=== PATIENT | female | born 1985 | race Asian ===

== ENCOUNTER 2018-05-18 11:11 | Inpatient (IN) | payer OTHER ==
[2018-05-18] MEDS ORDERED: OBEPIDURAL* 0 ML EPIDURAL ONE (11:56)
[2018-05-18] MEDS ORDERED: fentaNYL* 50 MCG/ML 2 ML VIAL (100 MCG VIAL) ONE (12:03)
--- NOTE | 2018-05-18 12:11 | HP ---
General Information - General Information Maternal Age: 29 Grav: 1 Para: 0 SAB: 0 IEA: 0 Estimated Due Date: 05/26/15 Determined By: Early Ultrasound Gestational Age in Weeks and Days: 39 Weeks and 2 Days Maternal Blood Type and Rh: A Positive - Results this Serology/RPR Result: Non-Reactive Rubella Result: Immune HBsAg Result: Negative HIV Result: Negative GBS Culture Result: Positive Past Medical History Delivery History: Hx Uncomplicated Vaginal Delivery Pertinent Past Medical History: Non-Contributory Past Medical History Comment: Tuberculosis age 17 Pertinent Past Surgical History: None Pertinent Family History: Non-Contributory - Antepartal Records Antepartal Records: Reviewed, Complicated by: - Gestational diabetes, diet controlled Review of Systems Constitutional: Uncomfortable CV Complaint: No Respiratory: Shortness of Breath: No Genitourinary: No Leaking Fluid Musculoskeletal: Contractions Neurological: No Headache Movement: Normal - Comments Nausea Exam Allergies/Adverse Reactions: Allergies No Known Allergies Allergy (Verified 07/23/16 13:42) - Measurements Pre- Weight: 113 lb - Exam Breast: - - soft, no masses Extremities: Edema Heart: Normal Rhythm/Heart Sounds HEENT: No Significant Findings Lungs: Clear Bilaterally Reflexes: DTR 2+ Thyroid: No Thyromegaly - Ultrasound/Biophysical Profile Ultrasound Status: Not Done Targeted Exam Findings Cervical Exam: 7cm Effacement: 100% Station: -1 Presenting Part: Vertex Membrane Status: Bulging EFM Findings - External Monitor Findings Baseline Heart Rate: 150 External Monitor Findings: Accelerations Present, Variability Moderate External Monitor Findings Comment: category 1 Contractions: Regular, Strong, 45-90 Seconds Contraction Frequency: every 3 min Assessment/Plan - Obstetrical Risk Factors Obstetrical Risk Factors: Gestational Diabetes - Plan Plan: Active Labor Plan Comment: pt requesting epidural. Was 7cm on admission, now 9 cm, will get intrathecal instead, anticipate vaginal delivery - Date/Time of Admission Date of Admission: 05/18/18 Time of Admission: 11:45
[2018-05-18 12:13] LABS: ABS Basophils 0 10^3/ul (0-0.2); ABS Eosinophils 0 10^3/ul (0-0.6); ABS Lymphocytes 1.7 10^3/ul (1.0-4.8); ABS Monocytes 0.6 10^3/ul (0-0.8); ABS Neutrophils 6.6 10^3/ul (1.5-7.7); ABS Nucleated RBC 0 10^3/ul; Eosinophil % 0.3 % (0-6); Hematocrit 42 % (35-47); Lymphocyte % 19.4 % (25-47); Mean Corpuscular HGB Conc 36 g/dl (31-36); Mean Corpuscular Hemoglobin 34 pg (27-31); Mean Corpuscular Volume 94 fL (80-97); Mean Platelet Volume 10.3 um3 (7.4-10.4); Nucleated Red Blood Cells % 0.1; Platelet Count 139 10^3/ul (150-450); Red Blood Count 4.47 10^6/ul (4.00-5.40); Red Cell Distribution Width 13 % (10.5-15)
[2018-05-18] MEDS ORDERED: Famotidine TAB* 20 MG PO PRN (12:18)
[2018-05-18] MEDS ORDERED: Sodium Citrate/Citric Acid* 15 ML UDC PO PRN (12:18)
[2018-05-18] MEDS ORDERED: EPHEDrine (Pressors)* 50 MG/ML VIAL IV PUSH PRN (12:18)
[2018-05-18] MEDS ORDERED: Phenylephrine IV* 40 MCG/ML 10 ML SYRINGE IV PUSH PRN (12:18)
[2018-05-18] MEDS ORDERED: OBEPIDURAL* 250 ML EPIDURAL SCH (13:00)
[2018-05-18] MEDS ORDERED: Oxytocin in LR* 20 UNITS/1,000 ML BAG IVPB ONE (13:22)
[2018-05-18] MEDS ORDERED: Witch Hazel PAD* JAR TOPICAL PRN (14:12)
[2018-05-18] MEDS ORDERED: Ibuprofen TAB* 600 MG PO PRN (14:12)
[2018-05-18] MEDS ORDERED: Glycerin ADULT SUPP PR PRN (14:12)
[2018-05-18] MEDS ORDERED: Acetaminophen TAB* 325 MG PO PRN (14:12)
[2018-05-18] MEDS ORDERED: Dibucaine 1% 28.35 GM TUBE PR PRN (14:12)
--- NOTE | 2018-05-18 14:20 | PROCNOTE ---
[facility] OB: Delivery Note - Delivery A Date of : 05/18/18 Time of : 13:13 Ocate Sex: Male Score 1 Minute: 8 Score 5 Minutes: 9 Gestational Age in Weeks and Days at Delivery: 38 Weeks and 0 Days Delivery Method: Spontaneous Vaginal Labor: Spontaneous Did Patient attempt ?: N/A, No Previous Amniotic Fluid: Clear Estimated Blood Loss: 200 Anesthesia/Analgesia: ITF/Spinal for Labor Anesthesia Comment: Dr. Madsen Delivered By: Ina Jenkins - Nursery Level of Nursery: Regular/Bedside - Perineum Perineal Injury: Perineal Laceration, 2nd Degree Perineal Injury Comment: repaired with 3-0 and 4-0 ccg under 1% lidocaine local Perineal Repair: By Delivering Practioner - Events Delivery Events of Note: Pitocin Only After Delivery - Additional Delivery Notes Additional Delivery Notes: SVB L[facility], OA over 2nd deg perineal laceration. Infant to maternal abd, pink with stimulation. Terminal mec. Placenta Miguel Ángel. FF with massage, IV with pitocin running. EBL 200cc. Straight cathed after for approx 150 cc urine. Mother and baby in good condition
[2018-05-18] MEDS ORDERED: Oxytocin in LR* 20 UNITS/1,000 ML BAG IVPB SCH (15:00)
[2018-05-18] MEDS: Docusate CAP* 100 MG PO SCH (20:28)
[2018-05-19 06:15] LABS: Hematocrit 37 % (35-47); Hemoglobin 12.3 g/dl (12.0-16.0); Mean Corpuscular HGB Conc 34 g/dl (31-36); Mean Corpuscular Hemoglobin 32 pg (27-31); Mean Corpuscular Volume 96 fL (80-97); Mean Platelet Volume 10.1 um3 (7.4-10.4); Platelet Count 118 10^3/ul (150-450); Red Blood Count 3.81 10^6/ul (4.00-5.40); Red Cell Distribution Width 13 % (10.5-15); White Blood Count 12.1 10^3/ul (3.5-10.8)
[2018-05-19] MEDS: Docusate CAP* 100 MG PO SCH ×3 (08:53→19:50)
[2018-05-19] MEDS ORDERED: Ferrous Gluconate TAB* 324 MG TAB PO SCH (09:00)
[2018-05-20 07:33] VITALS: BP 101/61
[2018-05-20] MEDS: Docusate CAP* 100 MG PO SCH (10:57)
== END 2018-05-20 12:20 | disposition home or self-care (01) | DRG 775 ==
LOC: MCHOBOUT 11:11 → MCHOB 11:36
PROVIDERS: ADMIT Midwife; ATTEND Midwife
PROC: 10E0XZZ Delivery of Products of Conception, External Approach (ICD-10-PCS; principal; 2018-05-18)
PROC: 0KQM0ZZ Repair Perineum Muscle, Open Approach (ICD-10-PCS; 2018-05-18)
PROC: 10907ZC Drainage of Amniotic Fluid, Therapeutic from Products of Conception, Via Natural or Artificial Opening (ICD-10-PCS; 2018-05-18)
PROC: 4A1HXCZ Monitoring of Products of Conception, Cardiac Rate, External Approach (ICD-10-PCS; 2018-05-18)
DX: O24.420 Gestational diabetes mellitus in childbirth, diet controlled (principal); O99.824 Streptococcus B carrier state complicating childbirth; Z86.11 Personal history of tuberculosis; Z3A.38 38 weeks gestation of pregnancy; O70.1 Second degree perineal laceration during delivery; O77.0 Labor and delivery complicated by meconium in amniotic fluid; Z37.0 Single live birth
CPT/HCPCS: 36415; 85025; 85027; 86850; 86900; 86901; A9270-GY; J3010

== ENCOUNTER 2019-08-23 16:50 | Emergency (ER) | payer OTHER ==
--- OUTSIDE RECORDS SUMMARY | 2019-08-23 16:59 | XMS REPORT | Continuity of Care Document ---
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 Problems Active Problems Provider Date Multigravida Andres Moran CNM Onset: 11/18/2017 Gestational diabetes mellitus Andres Moran CNM Onset: 04/20/2018 Social History Type Date Description Comments Sex Unknown Tobacco Use Start: Unknown Never Smoked Cigarettes ETOH Use Denies alcohol use Tobacco Use Start: Unknown Patient has never smoked Recreational Drug Use Denies Drug Use Smoking Status Reviewed: 07/18/19 Patient has never smoked Exercise Type/Frequency Does not exercise Allergies, Adverse Reactions, Alerts Description No Known Drug Allergies Medications Active Medications SIG Qnty Indications Ordering Provider Date Cyred Eq Take one tablet 84tabs Robert Colmenares JR, 0.15-30mg-mcg daily DO Tablets Medications Administered in Office Medication SIG Qnty Indications Ordering Provider Date PT SCRN Tbco Id as Non User Rosemary Duarte CNM 01/04/2019 Injection Immunizations CPT Code Status Date Vaccine Lot # [id number] Given 03/10/2018 Tetnus, Diptheria Toxoids And Acellular Pertussis, [id number] PT > 7Yrs Old [id number] Given 03/12/2015 Tetnus, Diptheria Toxoids And Acellular Pertussis, [id number] PT > 7Yrs Old Vital Signs Date Vital Result Comment 07/18/2019 10:03am BP Systolic 112 mmHg BP Diastolic 80 mmHg Height 60.5 inches 5'0.50" Weight 116.00 lb BMI (Body Mass Index) 22.3 kg/m2 Last Menstrual Period [id number] 2 Parity 2 01/04/2019 12:41pm BP Systolic 102 mmHg BP Diastolic 64 mmHg Height 60.5 inches 5'0.50" Weight 126.00 lb BMI (Body Mass Index) 24.2 kg/m2 Last Menstrual Period [id number] 2 Parity 2 Results Description No Information Available Procedures Description No Information Available Medical Devices Description No Information Available Encounters Type Date Location Provider Dx Diagnosis Office Visit 07/18/2019 [facility] Robert Colmenares JR, Z30.8 Encounter for other 10:00a DO contraceptive management Assessments Date Code Description Provider 07/18/2019 Z30.8 Encounter for other contraceptive management Robert Colmenares JR, DO Plan of Treatment 07/18/2019 - Robert Colmenares JR, DOZ30.8 Encounter for other contraceptive managementComments:Refill given for OCP'sNo Hx of clotting d/o, No hx of DVT, No hx of migraine with Aura, Non-smokerDiscussed different IUD's and options for contraception.Is interested in paraguard IUD, informational pamphlet given, pt will call if she would like to schedule IUD placement. Functional Status Description No Information Available Mental Status Description No Information Available Referrals Description No Information Available
--- OUTSIDE RECORDS SUMMARY | 2019-08-23 16:59 | XMS REPORT | Continuity of Care Document ---
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 Problems Active Problems Provider Date Multigravida Andres Moran CNM Onset: 11/18/2017 Gestational diabetes mellitus Andres Moran CNM Onset: 04/20/2018 Social History Type Date Description Comments Sex Unknown Tobacco Use Start: Unknown Never Smoked Cigarettes ETOH Use Denies alcohol use Tobacco Use Start: Unknown Patient has never smoked Recreational Drug Use Denies Drug Use Smoking Status Reviewed: 07/23/19 Patient has never smoked Exercise Type/Frequency Does not exercise Allergies, Adverse Reactions, Alerts Description No Known Drug Allergies Medications Active Medications SIG Qnty Indications Ordering Provider Date Nitrofurantoin Monohyd take one tab 14caps Rita Bright MD 07/23/2019 Macro by mouth twice 100mg Capsules a day for 7 days Phenazopyridine HCL take one tab 6tabs Rita Bright MD 07/23/2019 100mg by mouth three Tablets times a day after meals for up to two days History Medications No Active Medications Unknown 07/23/2019 - 07/23/2019 Medications Administered in Office Medication SIG Qnty Indications Ordering Provider Date PT SCRN Tbco Id as Non User Rosemary Duarte CNM 01/04/2019 Injection Immunizations CPT Code Status Date Vaccine Lot # [id number] Given 03/10/2018 Tetnus, Diptheria Toxoids And Acellular Pertussis, [id number] PT > 7Yrs Old [id number] Given 03/12/2015 Tetnus, Diptheria Toxoids And Acellular Pertussis, [id number] PT > 7Yrs Old Vital Signs Date Vital Result Comment 07/23/2019 2:22pm BP Systolic 100 mmHg BP Diastolic 65 mmHg Height 60.5 inches 5'0.50" Weight 116.00 lb BMI (Body Mass Index) 22.3 kg/m2 Last Menstrual Period [id number] 2 Parity 2 07/18/2019 10:03am BP Systolic 112 mmHg BP Diastolic 80 mmHg Height 60.5 inches 5'0.50" Weight 116.00 lb BMI (Body Mass Index) 22.3 kg/m2 Last Menstrual Period [id number] 2 Parity 2 Results Description No Information Available Procedures Description No Information Available Medical Devices Description No Information Available Encounters Type Date Location Provider Dx Diagnosis Office Visit 07/23/2019 [facility] Rita Bright MD N30.01 Acute cystitis with 2:15p hematuria Office Visit 07/18/2019 [facility] Office Robert Colmenares JR, Z30.8 Encounter for other 10:00a DO contraceptive management Assessments Date Code Description Provider 07/23/2019 N30.01 Acute cystitis with hematuria Rita Bright MD 07/18/2019 Z30.8 Encounter for other contraceptive management Robert Colmenares JR DO Plan of Treatment 07/18/2019 - Robert Colmenares JR DOZ30.8 Encounter for other contraceptive managementComments:Refill given [...]
[2019-08-23 17:06] VITALS: BP 142/100
--- NOTE | 2019-08-23 17:59 | UC ---
Cardiac HPI - HPI Summary HPI Summary: 34-year-old woman comes in with a chief complaint of chest pain. Started on August 03, 2019. Patient reports she had food poisoning just prior to the beginning of the chest pain. Denies any vomiting episodes during that time. When patient lays down and rest the pain goes away. She gets up in the morning with no pain. After she eats lunch she feels a pressure about a 3 or 4 out of 10 in the middle of her chest. Symptoms are improved when she burps it decreases the pressure. No nausea or sweating no shortness of breath. No calf pain no history of DVT no calf swelling. No fevers or chills no chest congestion. Patient reports several years ago she had similar episode with a normal EKG and the pain went away on its own. - History of Current Complaint Chief Complaint: UCChestPain Stated Complaint: CHEST PAIN Time Seen by Provider: 08/23/19 17:08 Hx Last Menstrual Period: 211127 Pain Intensity: 2 - Allergy/Home Medications Allergies/Adverse Reactions: Allergies Allergy/AdvReac Type Severity Reaction Status Date / Time No Known Allergies Allergy Verified 08/23/19 17:06 PMH/Surg Hx/FS Hx/Imm Hx Previously Healthy: Yes - gestational diabetes - Surgical History Surgical History: None - Social History Alcohol Use: None Substance Use Type: None Smoking Status (MU): Never Smoked Tobacco Have You Smoked in the Last Year: No - Immunization History Most Recent Influenza Vaccination: unsure Most Recent Tetanus Shot: 03/12/15 Most Recent Pneumonia Vaccination: never Review of Systems All Other Systems Reviewed And Are Negative: Yes Constitutional: Positive: Negative Skin: Positive: Negative Eyes: Positive: Negative ENT: Positive: Negative Respiratory: Positive: Negative Cardiovascular: Positive: Chest Pain Gastrointestinal: Positive: Other - SEE HPI Motor: Positive: Negative Neurovascular: Positive: Negative Musculoskeletal: Positive: Negative Neurological: Positive: Negative Psychological: Positive: Negative Is Patient Immunocompromised?: No Physical Exam Triage Information Reviewed: Yes Appearance: Well-Appearing, No Pain Distress, Well-Nourished Vital Signs: Initial Vital Signs Temp 98.4 F 08/23/19 16:59 Pulse 73 08/23/19 16:59 Resp 16 08/23/19 16:59 BP 142/100 08/23/19 16:59 Pulse Ox 99 08/23/19 16:59 Vital Signs Reviewed: Yes Eye Exam: Normal Eyes: Positive: Conjunctiva Clear ENT: Positive: Pharynx normal Neck: Positive: Supple Respiratory: Positive: Chest non-tender, Lungs clear, Normal breath sounds, No respiratory distress Cardiovascular: Positive: RRR, No Murmur Abdomen Description: Positive: Nontender, Soft Bowel Sounds: Positive: Present Musculoskeletal: Positive: Strength Intact, ROM Intact, No Edema - No calf tenderness Neurological: Positive: Alert, Muscle Tone Normal Psychological: Positive: Age Appropriate Behavior Skin Exam: Normal Diagnostics - EKG Cardiac Rate: NL - AT 1711 Cardiac Rhythm: Sinus: Normal - 72 BPM Ectopy: None ST Segment: Normal - Assessment/Plan Course Of Treatment: I discussed the EKG with the patient I do not see any ischemic changes on EKG. With the pain getting worse after eating I'm most suspicious that the pain is caused by pressure in the esophagus. Patient denies any shortness of breath. Activity does not make the pain worse. No calf pain no calf swelling no history DVT patient is not on any control pills. She has no history of clotting disorders. Oxygen saturations normal she is not tachycardic. Plan right now is to treat with omeprazole 20 mg by mouth twice a day and follow-up with her primary care doctor which she has an appointment for on August 27, 2019. Patient has a history of gestational diabetes and she wondered if her blood sugar had any into the pain. Her random fingerstick blood sugar here was 81 in clinic. At the patient know that if her symptoms got worse with pain shortness of breath she felt ill or any other questions or concerns she needs to go directly to the emergency department. - Clinical Impression Provider Diagnosis: Chest pain Discharge ED - Sign-Out/Discharge Documenting (check all that apply): Patient Departure All imaging exams completed and their final reports reviewed: No Studies - Discharge Plan Condition: Stable Disposition: HOME Prescriptions: Omeprazole 20 mg PO BID #30 capsule. Patient Education Materials: Chest Pain (ED) Referrals: [facility] [Provider Group] Additional Instructions: FOLLOW UP WITH YOUR DOCTOR SCHEDULED ON 08/27/19. GO TO THE EMERGENCY DEPARTMENT IF YOUR CONDITION WORSENS; PAIN, SHORTNESS OF BREATH, YOU FEEL ILL OR ANY QUESTIONS OR CONCERNS. - Billing Disposition and Condition Condition: STABLE Disposition: Home
== END 2019-08-23 18:24 | disposition home or self-care (01) ==
LOC: UCEAST 16:50
DX: R07.9 Chest pain, unspecified (principal)
CPT/HCPCS: 93005; 99212; G0463